=== PATIENT | female | born 1985 | race Caucasian/White ===

== ENCOUNTER 2017-01-05 09:18 | Emergency (ER) | payer OTHER ==
[2017-01-05 09:57] VITALS: BP 133/79
[2017-01-05] MEDS ORDERED: Tetan/Diph/Pertus SYR(Tdap)* 0.5 ML SYR(BOOSTRIX) use SYR IM ONE (10:36)
--- NOTE | 2017-01-05 10:53 | UC ---
Bite Injury/Animal HPI - HPI Summary HPI Summary: patient was bit by her pet rabbit when it became aggrevated by her dog. small puncture to pad of left middle finger. 2 cm laceration from bottom of left nail to DIP joint. well approximated and superficial. - History of Current Complaint Chief Complaint: UCLaceration Stated Complaint: RABBIT BITE Time Seen by Provider: 01/05/17 10:08 Hx Obtained From: Patient Hx Last Menstrual Period: 1.5 weeks ago ?: No Severity Currently: Mild Severity Initially: Mild Pain Intensity: 3 Pain Scale Used: 0-10 Numeric Onset/Duration: Sudden Onset, Lasting Hours Type of Bite: Pet Has Animal Been Immunized?: Yes Character: Puncture, Abrasion/Laceration Aggravating Factor(s): Nothing Alleviating Factor(s): Nothing Animal Available for Observation: Yes Animal Control Notified: No - Allergies/Home Medications Allergies/Adverse Reactions: Allergies Allergy/AdvReac Type Severity Reaction Status Date / Time Gluten Meal Allergy GI Upset Verified 10/07/16 08:47 Lactose Intolerance (GI) Allergy GI Upset Verified 01/05/17 09:57 Latex Allergy Itching, Verified 10/07/16 08:47 Rash hormone OCs Allergy Headache Uncoded 01/05/17 09:59 non-tapazol thyroid med Allergy Hallucinati Uncoded 01/05/17 09:59 ons Home Medications: Home Medications Methimazole TAB* [Tapazole TAB*] 10 mg PO DAILY 01/05/17 [History Confirmed ] Metoprolol Tartrate TAB* [Lopressor TAB*] 25 mg PO BID 01/05/17 [History Confirmed 01/05/17] PMH/Surg Hx/FS Hx/Imm Hx Previously Healthy: Yes Endocrine History Of: Reports: Thyroid Disease - Grave's disease. Denies: Diabetes, Hyperthyroidism, Hypothyroidism, Dyslipidemia Cardiovascular History Of: Denies: Cardiac Disorders, Hypertension, Pacemaker/ICD, Myocardial Infarction , Congestive Heart Failure, Atrial Fibrillation, Deep Vein Thrombosis, Bleeding Disorders Respiratory History Of: Denies: COPD, Asthma, Bronchitis, Pneumonia, Pulmonary Embolism GI/ History Of: Denies: Gastroesophageal Reflux, Ulcer, Gastrointestinal Bleed, Gall Bladder Disease, Kidney Stones, Diverticulitis, Renal Disease, Urosepsis Neurological History Of: Denies: TIA, CVA, Dementia, Seizures, Migraine Psychological History Of: Denies: Anxiety, Depression, Bipolar Disorder, Schizophrenia, Post Traumatic Stress Disorder Cancer History Of: Denies: Lung Cancer, Colorectal Cancer, Breast Cancer, Prostate Cancer, Cervical Cancer Other History Of: Negative For: HIV, Hepatitis B, Hepatitis C, Anticoagulant Therapy - Surgical History Surgical History: Yes Surgery Procedure, Year, and Place: RIGHT ANKLE RECONSTRUCTION - Family History Known Family History: Positive: Cardiac Disease, Hypertension - Social History Alcohol Use: Occasionally Substance Use Type: None Smoking Status (MU): Former Smoker Type: Cigarettes Amount Used/How Often: 11/20 PPD Length of Time of Smoking/Using Tobacco: 2 Years Have You Smoked in the Last Year: Yes When Did the Patient Quit Smoking/Using Tobacco: 06/2016 - Immunization History Most Recent Influenza Vaccination: Not the Season Most Recent Tetanus Shot: unknown Review of Systems Constitutional: Negative Skin: Other - puncture wound and laceration into nail bed Eyes: Negative ENT: Negative Respiratory: Negative Cardiovascular: Negative Gastrointestinal: Negative Genitourinary: Negative Motor: Negative Neurovascular: Negative Musculoskeletal: Negative Neurological: Negative Psychological: Negative All Other Systems Reviewed And Are Negative: Yes Physical Exam Triage Information Reviewed: Yes Appearance: No Pain Distress, Well-Nourished, Ill-Appearing Vital Signs: Initial Vital Signs Temp 98.9 F 01/05/17 09:47 Pulse 83 01/05/17 09:47 Resp 18 01/05/17 09:47 BP 133/79 01/05/17 09:47 Vital Signs Reviewed: Yes Eye Exam: Normal Eyes: Positive: Conjunctiva Clear ENT Exam: Normal ENT: Positive: Normal ENT inspection, Hearing grossly normal, Pharynx normal, TMs normal Dental Exam: Normal Neck exam: Normal Neck: Positive: Supple, Nontender, No Lymphadenopathy Respiratory Exam: Normal Respiratory: Positive: Chest non-tender, Lungs clear, Normal breath sounds Cardiovascular Exam: Normal Cardiovascular: Positive: RRR, No Murmur, Pulses Normal Abdominal Exam: Normal Abdomen Description: Positive: Nontender, No Organomegaly, Soft Bowel Sounds: Positive: Present Musculoskeletal Exam: Normal Musculoskeletal: Positive: Strength Intact, ROM Intact, No Edema Neurological Exam: Normal Neurological: Positive: Alert, Muscle Tone Normal Psychological Exam: Normal Skin: Positive: Other - laceration from bottom of nail, small puncture through the nail bed, extending to the DIP joint. superficial. Bite Injury Course/Dx - Course Course Of Treatment: hx obtained, exam performed, 3 steri strips applied, finger splint applied, meds prescribed, Tetanus given. - Differential Dx/Diagnosis Differential Diagnosis/HQI/PQRI: Cellulitis, Fracture, Laceration, Puncture, Rabies Exposure, Superficial Infection Provider Diagnoses: animal bite. laceration Discharge - Discharge Plan Condition: Stable Disposition: HOME Patient Education Materials: Animal Bite (ED) Additional Instructions: keep area clean and dry, watch for signs of infection, follow up with any sign of infection. Take the medication as prescribed. You received a Tdap ( tetanus, diptheria and pertussis) vaccination today.
== END 2017-01-05 11:01 | disposition home or self-care (01) ==
LOC: UCCORT 09:18
DX: S61.353A Open bite of left middle finger with damage to nail, initial encounter (principal); W64.XXXA Exposure to other animate mechanical forces, initial encounter; Y92.9 Unspecified place or not applicable; E05.00 Thyrotoxicosis with diffuse goiter without thyrotoxic crisis or storm; Z23 Encounter for immunization; Z87.891 Personal history of nicotine dependence; Z88.8 Allergy status to other drugs, medicaments and biological substances
CPT/HCPCS: 90471; 90715; 99211; G0463

== ENCOUNTER 2017-05-18 18:24 | Emergency (ER) | payer SELFPAY ==
[2017-05-18 19:30] VITALS: BP 110/71
[2017-05-18] MEDS ORDERED: Ketorolac INJ* 60 MG/2 ML VIAL IM ONE (20:22)
[2017-05-18] MEDS ORDERED: Cyclobenzaprine TAB* 10 MG PO ONE (20:25)
--- NOTE | 2017-05-18 20:30 | UC ---
Back Pain HPI - HPI Summary HPI Summary: patient bent over to lift a heavy case at work, felt sharp pain in the right lower back - History of Current Complaint Chief Complaint: UCBackPain Stated Complaint: BACK INJURY (WC) Time Seen by Provider: 05/18/17 20:11 Hx Obtained From: Patient Hx Last Menstrual Period: now ?: No Onset/Duration: Sudden Onset, Lasting Hours Timing: Constant Severity Initially: Mild Severity Currently: Moderate Character: Sharp, Spasmodic, Stiffness Aggravating: Lifting, Bending, Walking Alleviating: Nothing - Allergies/Home Medications Allergies/Adverse Reactions: Allergies Allergy/AdvReac Type Severity Reaction Status Date / Time Gluten Meal Allergy GI Upset Verified 05/18/17 19:30 Lactose Intolerance (GI) Allergy GI Upset Verified 05/18/17 19:30 Latex Allergy Itching, Verified 05/18/17 19:30 Rash hormone OCs Allergy Headache Uncoded 05/18/17 19:30 non-tapazol thyroid med Allergy Hallucinati Uncoded 05/18/17 19:30 ons Home Medications: Home Medications Ibuprofen TAB* [Motrin TAB* 600 MG] 600 mg PO Q6H PRN 05/18/17 [History Confirmed 05/18/17] PMH/Surg Hx/FS Hx/Imm Hx Previously Healthy: Yes Other History Of: Negative For: HIV, Hepatitis B, Hepatitis C, Anticoagulant Therapy - Surgical History Surgical History: Yes Surgery Procedure, Year, and Place: RIGHT ANKLE RECONSTRUCTION - Family History Known Family History: Positive: Cardiac Disease, Hypertension - Social History Alcohol Use: Weekly Substance Use Type: None Smoking Status (MU): Former Smoker Type: Cigarettes, eCigarettes Amount Used/How Often: 1/10 PPD Length of Time of Smoking/Using Tobacco: 2 Years Have You Smoked in the Last Year: Yes When Did the Patient Quit Smoking/Using Tobacco: 06/2016 - Immunization History Most Recent Influenza Vaccination: Not the 2015/2016 Season Most Recent Tetanus Shot: unknown Review of Systems Constitutional: Negative Skin: Negative Eyes: Negative ENT: Negative Respiratory: Negative Cardiovascular: Negative Gastrointestinal: Negative Genitourinary: Negative Motor: Negative Neurovascular: Negative Musculoskeletal: Arthralgia - right SI very tender to touch, palpable hypertonicity of the low back and right glute noted, Decreased ROM, Myalgia Neurological: Negative Psychological: Negative All Other Systems Reviewed And Are Negative: Yes Physical Exam Triage Information Reviewed: Yes Appearance: Well-Appearing, Well-Nourished, Pain Distress Vital Signs: Initial Vital Signs Temp 98.9 F 05/18/17 19:22 Pulse 84 05/18/17 19:22 Resp 14 05/18/17 19:22 BP 110/71 05/18/17 19:22 Pulse Ox 100 05/18/17 19:22 Vital Signs Reviewed: Yes Eye Exam: Normal ENT Exam: Normal Dental Exam: Normal Neck exam: Normal Respiratory Exam: Normal Cardiovascular Exam: Normal Abdominal Exam: Normal Bowel Sounds: Positive: Present Musculoskeletal: Positive: No Edema, Strength Limited @, ROM Limited @ - in lumbar FLx and ext and rotation Neurological Exam: Normal Neurological: Positive: Alert, Muscle Tone Normal Psychological Exam: Normal Skin Exam: Normal Back Pain Course/Dx - Course Course Of Treatment: hx obtained, exam performed ,meds reviewed, treated for sacroilititis. toradol, flexeril and PT referral given, work restriction given - Differential Dx/Diagnosis Differential Diagnosis/HQI/PQRI: Arthritis, Cauda Equina Syndrome, Strain, Sprain Provider Diagnoses: sacroilitis, right Discharge - Discharge Plan Condition: Stable Disposition: HOME Prescriptions: Cyclobenzaprine TAB* [Flexeril 10 MG TAB*] 10 mg PO BID PRN #12 tab PRN Reason: Spasms Ibuprofen TAB* [Motrin TAB* 600 MG] 600 mg PO Q8H PRN #21 tab PRN Reason: Pain Patient Education Materials: Sacroiliitis (ED), Lower Back Exercises (ED) Forms: *Work Release Referrals: No Primary Care Phys,NOPCP [Primary Care Provider] - Anup Sellers [Physical Therapist] - Siddharth Newton MD [Medical Doctor] - Additional Instructions: 1. take the medication as prescribed. 2. Follow up with PT 3. I have given you work restrictions, if no improvement follow up with the orthopedic as listed on this paperwork
== END 2017-05-18 20:51 | disposition home or self-care (01) ==
LOC: UCCORT 18:24
DX: M46.1 Sacroiliitis, not elsewhere classified (principal); Z87.891 Personal history of nicotine dependence; Z88.8 Allergy status to other drugs, medicaments and biological substances
CPT/HCPCS: 96372; 99212; A9270-GY; G0463; J1885

== ENCOUNTER 2017-10-27 20:20 | Emergency (ER) | payer SELFPAY ==
--- NOTE | 2017-10-27 20:33 | UC ---
Ear Complaint HPI - HPI Summary HPI Summary: Had Q-tip break off in right ear a week ago. Has not been able to get to get it checked out. - History of Current Complaint Stated Complaint: RIGHT EAR COMPLAINT (Q-TIP BROKE) Time Seen by Provider: 10/27/17 20:26 Hx Obtained From: Patient Hx Last Menstrual Period: now ?: No Onset/Duration: Sudden Onset, Lasting Weeks - 1, Still Present Severity Initially: Mild Severity Currently: Mild Aggravating Factors: FB - Q-tip Related History: Seasonal Allergies - Allergies/Home Medications Allergies/Adverse Reactions: Allergies Allergy/AdvReac Type Severity Reaction Status Date / Time Gluten Meal Allergy GI Upset Verified 10/27/17 20:25 Lactose Intolerance (GI) Allergy GI Upset Verified 10/27/17 20:25 Latex Allergy Itching, Verified 10/27/17 20:25 Rash hormone OCs Allergy Headache Uncoded 10/27/17 20:25 non-tapazol thyroid med Allergy Hallucinati Uncoded 10/27/17 20:25 ons Home Medications: Home Medications Methimazole TAB* [Tapazole TAB*] 10 mg PO BID 10/27/17 [History Confirmed ] Metoprolol Tartrate TAB* [Lopressor TAB*] 25 mg PO DAILY 10/27/17 [History Confirmed 10/27/17] PMH/Surg Hx/FS Hx/Imm Hx - Additional Past Medical History Additional PMH: Graves disease Previously Healthy: No Other History Of: Negative For: HIV, Hepatitis B, Hepatitis C, Anticoagulant Therapy - Surgical History Surgical History: Yes Surgery Procedure, Year, and Place: RIGHT ANKLE RECONSTRUCTION - Family History Known Family History: Positive: Cardiac Disease, Hypertension, Diabetes - Social History Occupation: Employed Full-time Lives: With Family Alcohol Use: Weekly Substance Use Type: None Smoking Status (MU): Former Smoker Type: Cigarettes, eCigarettes Amount Used/How Often: 1/10 PPD Length of Time of Smoking/Using Tobacco: 2 Years Have You Smoked in the Last Year: Yes When Did the Patient Quit Smoking/Using Tobacco: 06/2016 - Immunization History Most Recent Influenza Vaccination: Not the 2015/2016 Season Most Recent Tetanus Shot: unknown Review of Systems ENT: Nasal Discharge - from allergies. Is Patient Immunocompromised?: No All Other Systems Reviewed And Are Negative: Yes Physical Exam Triage Information Reviewed: Yes Appearance: Well-Appearing, No Pain Distress, Well-Nourished Vital Signs Reviewed: Yes ENT: Positive: Pharynx normal, TMs normal, Other - right ear canal swollen and tender with some erythema. ? white material was not cotton. No FB seen. Neck exam: Normal Respiratory Exam: Normal Cardiovascular Exam: Normal Musculoskeletal Exam: Normal Neurological Exam: Normal Psychological Exam: Normal Skin Exam: Normal Ear Complaint Course/Dx - Course Course Of Treatment: No FB noted. - Differential Dx/Diagnosis Differential Diagnosis/HQI/PQRI: Foreign Body, Otitis Externa, Otitis Media, Perforated TM Provider Diagnoses: Acute otitis externa right ear. Discharge - Discharge Plan Condition: Stable Disposition: HOME Prescriptions: Neomyc/Polym/HC 1% OTIC SUSP* [Cortisporin Otic Susp 1%*] 4 drop RIGHT EAR TID # 1 btl Patient Education Materials: Otitis Externa (ED), Neomycin/Polymyxin B/ Hydrocortisone (Into the ear) Referrals: No Primary Care Phys,NOPCP [Primary Care Provider] - Additional Instructions: If you get water in the ear use rubbing alcohol to dry out the ear and give an antibacterial effect.
[2017-10-27] MEDS ORDERED: Neomyc/Polym/HC 1% OTIC SUSP* **OTIC RIGHT EAR ONE (20:55)
[2017-10-27 20:58] VITALS: BP 133/74
== END 2017-10-27 21:13 | disposition home or self-care (01) ==
LOC: UCCORT 20:20
DX: H60.501 Unspecified acute noninfective otitis externa, right ear (principal); Z87.891 Personal history of nicotine dependence
CPT/HCPCS: 99212; A9270-GY; G0463

== ENCOUNTER 2018-01-26 07:01 | Emergency (ER) | payer SELFPAY ==
[2018-01-26 07:13] VITALS: BP 133/70
--- NOTE | 2018-01-26 07:25 | UC ---
Ear Complaint HPI - HPI Summary HPI Summary: Q tip fragment in right ear this morning. - History of Current Complaint Chief Complaint: UCEar Stated Complaint: RT EAR COMPLAINT Time Seen by Provider: 01/26/18 07:15 Hx Obtained From: Patient Hx Last Menstrual Period: 12/31/17 Onset/Duration: Sudden Onset, Lasting Hours - 1 Severity Initially: Mild Severity Currently: Mild Pain Intensity: 6 Aggravating Factors: Nothing Alleviating Factors: Nothing Associated Signs/Symptoms: Positive: Foreign Body Sensation - Allergies/Home Medications Allergies/Adverse Reactions: Allergies Allergy/AdvReac Type Severity Reaction Status Date / Time gluten Allergy GI Upset Verified 01/26/18 07:07 lactose Allergy GI Upset Verified 01/26/18 07:07 Latex, Natural Rubber Allergy Rash And Verified 01/26/18 07:07 Itching hormone OCs Allergy Headache Uncoded 10/27/17 20:25 non-tapazol thyroid med Allergy Hallucinati Uncoded 10/27/17 20:25 ons PMH/Surg Hx/FS Hx/Imm Hx Previously Healthy: No - stopped treatment for Graves' 2 months ago Endocrine History: Hyperthyroidism GI/ History: Other - celiac disease. Other GI/ History: hx of celiac disease. Other History Of: Negative For: HIV, Hepatitis B, Hepatitis C, Anticoagulant Therapy - Surgical History Surgical History: Yes Surgery Procedure, Year, and Place: RIGHT ANKLE RECONSTRUCTION - Family History Known Family History: Positive: Cardiac Disease, Hypertension, Diabetes - Social History Occupation: Employed Full-time - home health aide. Lives: With Family Alcohol Use: Weekly Substance Use Type: None Smoking Status (MU): Former Smoker Type: Cigarettes, eCigarettes Amount Used/How Often: /10 PPD Length of Time of Smoking/Using Tobacco: 2 Years Have You Smoked in the Last Year: Yes When Did the Patient Quit Smoking/Using Tobacco: 06/2016 - Immunization History Most Recent Influenza Vaccination: Not the 2016/2017 Season Most Recent Tetanus Shot: unknown Review of Systems Constitutional: Negative, Other - stopped treatment with methimazole about 2 months ago, but has not had lab work since 2016 due to loss of insurance. Skin: Negative Eyes: Negative ENT: Other - thyroid goiter Respiratory: Negative Cardiovascular: Negative Gastrointestinal: Negative Genitourinary: Negative Motor: Negative Neurovascular: Negative Musculoskeletal: Negative Neurological: Other - hand tremor Psychological: Negative Is Patient Immunocompromised?: No All Other Systems Reviewed And Are Negative: Yes Physical Exam Triage Information Reviewed: Yes Appearance: Well-Appearing Vital Signs: Initial Vital Signs Temp 98.5 F 01/26/18 07:07 Pulse 82 01/26/18 07:07 Resp 16 01/26/18 07:07 BP 133/70 01/26/18 07:07 Pulse Ox 99 01/26/18 07:07 Vital Signs Reviewed: Yes Eyes: Positive: Other: - mild gustavo-orbital swelling. ENT: Positive: Pharynx normal, TM red - on the right. No large chunk of cotton seen, flushed ear, and canal is clear, TM dull and red. Dental Exam: Normal Neck: Positive: Supple, Nontender, No Lymphadenopathy, Other: - large firm thyroid, right greater than left lobe. Respiratory: Positive: Lungs clear, Normal breath sounds Cardiovascular: Positive: RRR, No Murmur Neurological: Positive: Alert, Other: - DTR's UE 2+, mild tremor. Psychological Exam: Normal Ear Complaint Course/Dx - Course Course Of Treatment: Ear flushed, no foreign body seen, but TM is erythematous and dull. Discussed untreated hyperthyroidism: requested labs to check status because she is still weeks away from having insurance. - Differential Dx/Diagnosis Differential Diagnosis/HQI/PQRI: Foreign Body Provider Diagnoses: ear trauma right canal secondary to qtip use. Discharge - Discharge Plan Condition: Stable Disposition: HOME Prescriptions: Neomyc/Polym/HC 1% OTIC SUSP* [Cortisporin Otic Susp 1%*] 4 drop RIGHT EAR QID # 1 btl Patient Education Materials: Otitis Externa (ED) Referrals: No Primary Care Phys,NOPCP [Primary Care Provider] - Additional Instructions: Your ear pain is related to trauma from qtip use and there is no retained foreign body evident. Use the prescription for ear drops if the discomfort continues beyond today; meantime use ibuprofen 600mg three times daily for ear pain. Labs to assess your thyroid function havebeen ordered today. The results will be available tomorrow.
== END 2018-01-26 08:13 | disposition home or self-care (01) ==
LOC: UCCORT 07:01
DX: S09.91XA Unspecified injury of ear, initial encounter (principal); X58.XXXA Exposure to other specified factors, initial encounter; Y93.E8 Activity, other personal hygiene; Y92.9 Unspecified place or not applicable; E05.90 Thyrotoxicosis, unspecified without thyrotoxic crisis or storm; K90.0 Celiac disease; Z88.8 Allergy status to other drugs, medicaments and biological substances; Z91.040 Latex allergy status; Z87.891 Personal history of nicotine dependence
CPT/HCPCS: 36415; 84439; 84443; 84481; 99213; G0463

== ENCOUNTER 2019-12-11 12:17 | Emergency (ER) | payer SELFPAY ==
[2019-12-11 14:17] VITALS: BP 131/75
[2019-12-11] MEDS ORDERED: Lidocaine 1% MPF ** 5 ML VIAL INJ ONE (14:40)
--- NOTE | 2019-12-11 16:00 | UC ---
Laceration HPI - HPI Summary HPI Summary: Pt presents with laceration on right big toe that pt has concern for fb. Pt was walking barefoot at home and felt sudden onset of sharp pain, right big toe bleeding and feeling of FB. - History Of Current Complaint Chief Complaint: UCLowerExtremity Stated Complaint: RIGHT BIG TOE LACERATION WITH GLASS EMBEDDED Time Seen by Provider: 12/11/19 15:04 Hx Obtained From: Patient Hx Last Menstrual Period: 11/25/19 Laceration Location: Foot - right big toe Mechanism Of Injury: Sharp Trauma Onset/Duration: Sudden Onset Severity: Moderate Pain Intensity: 0 Pain Scale Used: 0-10 Numeric Aggravating Factors: Other: - palpation - Allergies/Home Medications Allergies/Adverse Reactions: Allergies Allergy/AdvReac Type Severity Reaction Status Date / Time eggplant Allergy Rash Verified 12/11/19 14:13 gluten Allergy GI Upset Verified 01/26/18 07:07 lactose Allergy GI Upset Verified 01/26/18 07:07 Latex, Natural Rubber Allergy Rash And Verified 01/26/18 07:07 Itching pepper (genus Capsicum) Allergy Rash Verified 12/11/19 14:13 potato Allergy Rash Verified 12/11/19 14:13 tomato Allergy Rash Verified 12/11/19 14:13 non-tapazol thyroid med Allergy Hallucinati Uncoded 10/27/17 20:25 ons PMH/Surg Hx/FS Hx/Imm Hx Previously Healthy: Yes Other History Of: Negative For: HIV, Hepatitis B, Hepatitis C, Anticoagulant Therapy - Surgical History Surgical History: Yes Surgery Procedure, Year, and Place: RIGHT ANKLE RECONSTRUCTION - Family History Known Family History: Positive: Cardiac Disease, Hypertension, Diabetes - Social History Occupation: Employed Full-time Lives: With Family Alcohol Use: None Substance Use Type: None Smoking Status (MU): Former Smoker Type: Cigarettes, eCigarettes Amount Used/How Often: 1/10 PPD Length of Time of Smoking/Using Tobacco: 2 Years Have You Smoked in the Last Year: Yes When Did the Patient Quit Smoking/Using Tobacco: 06/2016 - Immunization History Most Recent Influenza Vaccination: Not the 2015/2016 Season Most Recent Tetanus Shot: Vaccination Up to Date: Yes Review of Systems All Other Systems Reviewed And Are Negative: Yes Constitutional: Positive: Negative Skin: Positive: Other - laceration and possible FB Eyes: Positive: Negative ENT: Positive: Negative Respiratory: Positive: Negative Cardiovascular: Positive: Negative Gastrointestinal: Positive: Negative Genitourinary: Positive: Negative Motor: Positive: Negative Neurovascular: Positive: Negative Musculoskeletal: Positive: Myalgia - right big toe Neurological: Positive: Negative Psychological: Positive: Negative Is Patient Immunocompromised?: No Physical Exam Triage Information Reviewed: Yes Appearance: Pain Distress - right big toe with PE Vital Signs: Initial Vital Signs Temp 98.9 F 12/11/19 14:13 Pulse 97 12/11/19 14:13 Resp 15 12/11/19 14:13 BP 131/75 12/11/19 14:13 Pulse Ox 97 12/11/19 14:13 Vital Signs Reviewed: Yes Eye Exam: Normal ENT Exam: Normal ENT: Positive: Hearing grossly normal Dental Exam: Normal Neck exam: Normal Respiratory: Positive: No respiratory distress Musculoskeletal Exam: Normal Musculoskeletal: Positive: Strength Intact Neurological Exam: Normal Psychological Exam: Normal Skin Exam: Other - small laceration tip of right big toe bleeding has stopped, pt states area is very painful when pressure applied. Laceration Repair - Laceration Repair 1 Procedure Summary: 2cc of 1% lido injected into right great toe. small clear glass FB removed. 11 blade used to enlarged laceration to 0.6 cm Description: Linear Laceration Size After Repair: Length (cm) - 0.3, Width (mm) - 2, Depth (mm) - 3 Modified For Repair: No Cleansing Completed Via Routine Prep: Yes Irrigation With Pressure Irrigation Device: Yes Laceration Course/Dx - Differential Dx - Laceration/Wound Differental Diagnoses: Foreign Body, Laceration - Diagnosis Provider Diagnosis: Foreign body (FB) in soft tissue Discharge ED - Sign-Out/Discharge Documenting (check all that apply): Patient Departure All imaging exams completed and their final reports reviewed: No Studies - Discharge Plan Condition: Stable Disposition: HOME Patient Education Materials: Soft Tissue Foreign Body (ED) Referrals: [facility] [place] [place] [facility] [Outside] - If Needed No Primary Care Phys,NOPCP [Primary Care Provider] - - Billing Disposition and Condition Condition: STABLE Disposition: Home
== END 2019-12-11 15:43 | disposition home or self-care (01) ==
LOC: UCCORT 12:17
DX: S91.121A Laceration with foreign body of right great toe without damage to nail, initial encounter (principal); X58.XXXA Exposure to other specified factors, initial encounter; Y92.009 Unspecified place in unspecified non-institutional (private) residence as the place of occurrence of the external cause; Z91.018 Allergy to other foods; Z91.011 Allergy to milk products; Z91.040 Latex allergy status; Z88.8 Allergy status to other drugs, medicaments and biological substances; Z87.891 Personal history of nicotine dependence
CPT/HCPCS: 28190; 99211; G0463

== ENCOUNTER 2020-12-07 07:23 | Inpatient (IN) ==
[2020-12-07] MEDS ORDERED: Buffered Lidocaine 1% SYRIN 1 ml INTRADERM ONE (07:34)
[2020-12-07] MEDS ORDERED: Lactated Ringers 1000 ml BAG 1,000 ML IV ONE (07:34)
[2020-12-07] MEDS ORDERED: Penicillin G Potassium IV 5,000,000 UNITS in NS 0.9% 100 ml BAG 100 ML IVPB ONE (08:00)
[2020-12-07] MEDS ORDERED: Lactated Ringers 1000 ml BAG 1,000 ML IV SCH (08:00)
[2020-12-07 08:57] LABS: ABS Eosinophils 0.1 10^3/ul (0-0.6); ABS Lymphocytes 2.4 10^3/ul (1.0-4.8); ABS Monocytes 0.8 10^3/ul (0-0.8); ABS Neutrophils 8.5 10^3/ul (1.5-7.7); Eosinophil % 0.7 %; Hematocrit 41 % (35-47); Hemoglobin 14.5 g/dL (12.0-16.0); Lymphocyte % 20.8 %; Mean Corpuscular HGB Conc 35 g/dL (31-36); Mean Corpuscular Hemoglobin 30 pg (27-31); Mean Corpuscular Volume 85 fL (80-97); Platelet Count 212 10^3/uL (150-450); Red Blood Count 4.85 10^6 /uL (3.70-4.87); Red Cell Distribution Width 15 % (10-15); White Blood Count 11.8 10^3/uL (3.5-10.8)
[2020-12-07 09:29] LABS: Urine Benzodiazepine Screen None Detected (None Detect); Urine Cannabinoids Screen None Detected (None Detect); Urine Opiates Screen None Detected (None Detect)
[2020-12-07 09:30] LABS: Albumin/Globulin Ratio 1.2 (1-3); BUN/Creatinine Ratio 7.5 (8-20); Calcium 8.9 mg/dL (8.6-10.3); EGFR African American 161.8 (>60); EGFR Non-African American 133.7 (>60); Globulin 2.5 g/dL (2-4); Total Bilirubin 0.3 mg/dL (0.2-1.0); Total Protein 5.5 g/dL (6.4-8.9); Uric Acid 4.8 mg/dL (2.3-6.6)
[2020-12-07 09:56] LABS: Potassium 3.7 mmol/L (3.5-5.0)
[2020-12-07] MEDS: Penicillin G Potassium IV 3,000,000 UNITS in NS 0.9% 100 ml BAG 100 ML IVPB SCH ×3 (13:45→21:45)
[2020-12-07] MEDS ORDERED: Oxytocin in LR 20 UNITS/1,000 ML BAG IVPB ONE (16:28)
[2020-12-07] MEDS: Oxytocin in LR 20 UNITS/1,000 ML BAG IVPB SCH (16:32)
[2020-12-08] MEDS ORDERED: OBEPIDURAL 250 ML EPIDURAL ONE (00:08)
[2020-12-08] MEDS ORDERED: fentaNYL 100 mcg/2 ml 50 MCG/ML VIAL ONE ×2 (00:17→19:56)
[2020-12-08] MEDS: Phenylephrine 40 mcg/mL 10mL (400mcg) SYRINGE ONE ×3 (01:20→01:41)
[2020-12-08] MEDS ORDERED: OBEPIDURAL 250 ML EPIDURAL SCH (01:45)
[2020-12-08] MEDS: Penicillin G Potassium IV 3,000,000 UNITS in NS 0.9% 100 ml BAG 100 ML IVPB SCH ×6 (01:56→23:32)
[2020-12-08] MEDS ORDERED: Phenylephrine 40 mcg/mL 10mL (400mcg) SYRINGE IV PUSH PRN (04:31)
[2020-12-08] MEDS: Oxytocin in LR 20 UNITS/1,000 ML BAG IVPB SCH (13:35)
[2020-12-08] MEDS ORDERED: Bupivacaine 0.25% SDV PF 10 ML VIAL INJ ONE (16:59)
[2020-12-08] MEDS ORDERED: ceFOXitin 2 GM IVPREMIX 2 GM/50 ML BAG ONE (19:45)
[2020-12-08] MEDS ORDERED: Lidocaine 2% w/ EPI 1:200,000 MPF 20 ML SDV VIAL ONE (19:56)
[2020-12-08] MEDS ORDERED: Carboprost Tromethamine 250 mcg 1 ml VIAL ONE (19:59)
[2020-12-08] MEDS ORDERED: Nicotine GUM 2MG FRUIT FLAVOR PO PRN (20:01)
[2020-12-08] MEDS ORDERED: Oxytocin 10 UNITS/ML 1 ML VIAL ONE ×2 (20:18→20:42)
[2020-12-08] MEDS ORDERED: Ondansetron 4 mg VIAL 2 MG/ML 2 ml VIAL ONE (20:27)
[2020-12-08] MEDS ORDERED: Midazolam 2 mg/2 ml VIAL 1 mg/ml 2 ml VIAL (2 mg) ONE (20:29)
[2020-12-08] MEDS ORDERED: Naloxone 0.4 mg VIAL 0.4 mg/ml 1 ml VIAL IV PRN ×2 (20:35→20:39)
[2020-12-08] MEDS ORDERED: Ondansetron 4 mg VIAL 2 MG/ML 2 ml VIAL IV PRN (20:35)
[2020-12-08] MEDS ORDERED: diPHENhydraMINE IV 50 MG/ML 1 ml VIAL (BENADRYL) IV PRN (20:35)
[2020-12-08] MEDS ORDERED: Morphine PF AMP (0.5MG/ML) 5 MG/10 ML AMP ONE (20:36)
[2020-12-08] MEDS ORDERED: Prochlorperazine 5 mg/ml 2 ml VIAL (10 mg) IV PRN (20:39)
[2020-12-08] MEDS ORDERED: Glycerin ADULT 2.4 gm SUPP PR PRN (20:58)
[2020-12-08] MEDS ORDERED: Dibucaine 1% OINT 28.35 GM TUBE PR PRN (20:58)
[2020-12-08] MEDS ORDERED: Witch Hazel PAD JAR TOPICAL PRN (20:58)
[2020-12-08] MEDS ORDERED: Oxytocin in LR 20 UNITS/1,000 ML BAG IVPB SCH (21:00)
[2020-12-08] MEDS ORDERED: Lactated Ringers 1000 ml BAG 1,000 ML IV SCH (21:00)
[2020-12-09] MEDS ORDERED: Lidocaine 1% VIAL 10 MG/ML VIAL ONE (08:08)
[2020-12-09 08:16] LABS: ABS Basophils 0.1 10^3/ul (0-0.2); ABS Lymphocytes 2.8 10^3/ul (1.0-4.8); ABS Monocytes 1.2 10^3/ul (0-0.8); ABS Neutrophils 13.5 10^3/ul (1.5-7.7); Eosinophil % 0.3 %; Hematocrit 38 % (35-47); Lymphocyte % 15.7 %; Mean Corpuscular HGB Conc 35 g/dL (31-36); Mean Corpuscular Hemoglobin 30 pg (27-31); Mean Corpuscular Volume 85 fL (80-97); Mean Platelet Volume 7.7 fL (7.4-10.4); Platelet Count 195 10^3/uL (150-450); Red Blood Count 4.39 10^6 /uL (3.70-4.87); Red Cell Distribution Width 15 % (10-15); White Blood Count 17.6 10^3/uL (3.5-10.8)
[2020-12-09] MEDS ORDERED: Varicella Virus Vaccine Live 0.5 ML VIAL SUBCUT ONE (09:00)
[2020-12-11 08:03] VITALS: BP 127/73
[2020-12-11] MEDS ORDERED: Varicella Virus Vaccine Live 0.5 ML VIAL SUBCUT ONE (09:00)
== END 2020-12-11 13:10 | disposition home or self-care (01) | DRG 540 ==
LOC: MCHOBOUT 07:23 → MCHOB 08:20
PROVIDERS: ADMIT Obstetrics & Gynecology; ATTEND Obstetrics & Gynecology